=== PATIENT | female | born 1965 | race Caucasian/White ===

== ENCOUNTER 2025-02-26 11:08 | Emergency (ER) | payer OTHER ==
[~2025-02-26] VITALS: Ht 175.3 cm; Wt 124.7 kg
[2025-02-26 11:35] VITALS: PULSE 78; RESP 22; TEMP 98.6; O2SAT 98
[2025-02-26 12:02] LABS: BASOPHILS % 0.4 % (0.0-1.0); EOSINOPHILS # (AUTO) 0.1 (0.0-0.4); EOSINOPHILS % 0.9 % (0.0-6.0); HEMATOCRIT 39.5 % (34.2-44.1); LYMPHOCYTES # (AUTO) 1.7 (1.0-3.2); LYMPHOCYTES % 21.4 % (18.0-39.1); MEAN CORPUSCULAR HEMOGLOBIN 29.6 pg (28-32); MEAN CORPUSCULAR HGB CONC 32.9 g/dL (31-35); MONOCYTES # (AUTO) 0.4 (0.2-0.8); MONOCYTES % 4.8 % (4.4-11.3); NEUTROPHILS # (AUTO) 5.7 (2.1-6.9); PLATELET COUNT 218 x10e3/uL (140-360); RED BLOOD COUNT 4.39 x10e6/uL (3.6-5.1); RED CELL DISTRIBUTION WIDTH 12.5 % (11.7-14.4); WHITE BLOOD COUNT 7.94 x10e3/uL (4.8-10.8)
[2025-02-26 12:28] LABS: ALBUMIN 3.6 g/dL (3.5-5.0); ALBUMIN/GLOBULIN RATIO 1.3 (0.8-2.0); ANION GAP 17.6 mmol/L (8-16); BILIRUBIN,TOTAL 0.4 mg/dL (0.2-1.2); CALCIUM 8.6 mg/dL (8.4-10.2); CREATININE, SERUM 0.85 mg/dL (0.57-1.11); POTASSIUM 3.6 mmol/L (3.5-5.1); TOTAL PROTEIN 6.4 g/dL (6.5-8.1)
[2025-02-26 12:37] LABS: TROPONIN I 0.006 ng/mL (0-0.300)
[2025-02-26] MEDS: KETOROLAC TROMETHAMINE 30 MG/ML VIAL IV STA (12:58)
[2025-02-26] MEDS ORDERED: VENTOLIN HFA18 GM INH (13:18)
== END 2025-02-26 13:40 | disposition home or self-care (01) ==
LOC: ER 11:24
DX: R06.02 Shortness of breath (principal); J44.9 Chronic obstructive pulmonary disease, unspecified; M25.561 Pain in right knee; I10 Essential (primary) hypertension; E11.65 Type 2 diabetes mellitus with hyperglycemia; E78.5 Hyperlipidemia, unspecified; E03.9 Hypothyroidism, unspecified; D64.9 Anemia, unspecified; K21.9 Gastro-esophageal reflux disease without esophagitis; F32.A Depression, unspecified; R94.31 Abnormal electrocardiogram [ECG] [EKG]
CPT/HCPCS: 36415; 71045; 73562; 80053; 83690; 83880; 84484; 85025; 93005; 99284; J1885